=== PATIENT | female | born 1940 | race Caucasian/White ===

== ENCOUNTER → 2017-01-02 | Outpatient (CLI) | payer MEDICARE ==
--- NOTE | 2017-01-10 11:34 | P.ARTDOP ---
Arterial Doppler LOWER EXTREMITY ARTERIAL DOPPLER: DATE OF SERVICE: 01/02/2017 Reason for study: Bilateral claudication. Doppler waveforms: Multiphasic bilaterally throughout. Pulse volume recording: Normal configuration. Pressure gradients: None. Ankle-brachial indices: Greater than 1 bilaterally. Toe pressures: 108 on the right, 110 on the left Impression: Normal study.
== END | disposition home or self-care (01) ==
LOC: RADUSWWP 12:04
PROVIDERS: ATTEND Family Medicine
DX: M79.605 Pain in left leg (principal); M79.604 Pain in right leg
CPT/HCPCS: 93923

== ENCOUNTER → 2017-02-23 | Outpatient (CLI) | payer MEDICARE ==
--- NOTE | 2017-02-23 13:16 | XR ---
"EXAMINATION TYPE: XR lumbar spine 2 or 3V DATE OF EXAM: 02/23/2017 CLINICAL HISTORY: Pain after a fall TECHNIQUE: Frontal, and lateral images of the lumbar spine are obtained. COMPARISON: None FINDINGS: There are 5 lumbar type vertebral bodies identified. Compression deformity is seen of the L3 vertebral body with approximately one third vertebral height loss. Trabecular thickening and scler osis are seen of the superior endplate from the compression deformity. No evidence of retrolisthesis or retropulsion. Intervertebral disc space narrowing is seen at L5-S1. Facet arthropathy is also note d at L4-L5 and L5-S1. Extensive atheromatous changes are seen of the abdominal aorta and its branches. Overlying bowel gas is unremarkable. Catheter tubing overlies the right upper quadrant. IMPRESSION: 1. Compression deformity with height loss of approximately 33% of the L3 vertebral body without retro pulsion. Chronicity is unknown given the lack of comparison examinations. 2. Degenerative changes of the lower lumbar spine most exaggerated at L5-S1. A Red message has been communicated to Caterina Meyer via the [email or web address] | Critical Result sy stem on 02/23/2017 1:01 PM, Message ID [id number]."
== END | disposition home or self-care (01) ==
LOC: RADXRYALE 11:46
PROVIDERS: ATTEND Nurse Practitioner Family
DX: M47.817 Spondylosis without myelopathy or radiculopathy, lumbosacral region (principal); M43.8X6 Other specified deforming dorsopathies, lumbar region
CPT/HCPCS: 72100

== ENCOUNTER → 2017-03-29 | Outpatient (CLI) | payer MEDICARE ==
--- NOTE | 2017-03-29 15:49 | CT ---
EXAMINATION TYPE: CT lumbar spine wo con DATE OF EXAM: 03/29/2017 COMPARISON: Lumbar spine x-ray February 23, 2017. HISTORY: Lower back pain after fall injury. CT DLP: 446 mGycm Automated exposure control for dose reduction was used. FINDINGS: There are 5 lumbar-type vertebra redemonstrated. There is mild to moderate compression type fracture L3 level again seen. No suspicious linear lucency to suggest acute fracture is identified. Vertebral body heights otherwise are maintained. There is prominent spur from the anterior superior L3 endplate redemonstrated. There is moderate to severe disc space narrowing with mild spurring L5-S1 level. Sma ll posterior spur disc complex L2-L3 level is seen and L5-S1 level. Small posterior disc herniation L 4-L5 level as seen on sagittal images. Review of axial images at T12-L1 level shows mild facet degenerative changes bilaterally and mild bro ad disc bulge minimally effacing anterior thecal sac. Bilateral neural foramina are patent. Axial images at L1-L2 level show mild to moderate broad disc bulge mildly effacing anterior thecal sa c on axial image 19. There are mild facet degenerative changes bilaterally. There is mild bilateral a nterior inferior neural foraminal narrowing noted. Axial images at L2-L3 level show moderate to severe broad disc bulge effacing anterior thecal sac on axial image 29. There is mild facet degenerative changes bilaterally. There is mild to moderate bilat eral anterior inferior neural foraminal narrowing at this level identified. Axial images at L3-L4 level show moderate broad disc bulge effacing anterior thecal sac. There is mil d/moderate facet degenerative changes effacing posterior lateral thecal sac on axial image 39. There is moderate to severe bilateral neural foraminal narrowing at this level identified. Encroachment on both L3 nerves is difficult to exclude. Axial images at L4-L5 level show moderate broad-based posterior disc protrusion effacing anterior the dariel sac. There is moderate facet degenerative changes bilaterally. There is moderate bilateral neural foraminal narrowing at this level present. Axial images at L5-S1 level shows central spur disc complex but the spinal canal is well-preserved. T here is moderate facet arthropathy bilaterally. There is mild to moderate left greater than right aayush ral foraminal narrowing at this level identified. There is moderate to severe calcified plaque of the abdominal aorta extending into branch vessels. Th ere is partial visualization of shunt catheter in the right upper quadrant presumed GOOD HUMOR VENDOR shunt catheter . IMPRESSION: [id number] CHRONIC TYPE COMPRESSION FRACTURE L3 LEVEL REDEMONSTRATED. NO ACUTE FRACTURE OR DISL OCATION IS SEEN. MULTILEVEL DEGENERATIVE CHANGES THROUGHOUT THE LUMBAR SPINE ARE NOTED DETAILED AB OVE.
== END | disposition home or self-care (01) ==
LOC: RADCTMAIN 14:24
PROVIDERS: ATTEND Physical Medicine & Rehabilitation
DX: S32.039A Unspecified fracture of third lumbar vertebra, initial encounter for closed fracture (principal); M47.816 Spondylosis without myelopathy or radiculopathy, lumbar region; M16.0 Bilateral primary osteoarthritis of hip
CPT/HCPCS: 72131

== ENCOUNTER → 2020-11-15 | Outpatient (CLI) | payer MEDICARE ==
--- NOTE | 2020-11-15 09:42 | CT ---
EXAMINATION TYPE: CT brain wo con DATE OF EXAM: 11/15/2020 HISTORY: encounter for adjustment and management CSF drain dev CT DLP: 1017.9 mGycm. Automated Exposure Control for Dose Reduction was Utilized. TECHNIQUE: CT scan of the head is performed without contrast. COMPARISON: CT brain June 17, 2012. FINDINGS: Stable right frontal isa hole with EXPEDITER shunt catheter terminating in the right lateral deloris tricle near the midline, position unchanged. There is no acute intracranial hemorrhage or midline chloé ft identified. Persistent ventricular and sulcal prominence with ventricular size out of proportion t o degree of sulcal effacement. Ventricular size fairly stable from prior CT. Fourth ventricle is not dilated similar to prior. Low-attenuation in the periventricular white matter is redemonstrated. Calc ification of the distal vertebral and internal carotid arteries bilaterally is redemonstrated. Tiny e xophytic 4 mm skin lesion left zygoma level axial image 8 incidentally noted. Globes are intact and t he visualized sinuses are clear. IMPRESSION: No acute intracranial hemorrhage or midline shift. Moderate hydrocephalus despite EXPEDITER michelle nt catheter placement remains present. No significant change from 2012 CT.
== END | disposition home or self-care (01) ==
LOC: RADCTMAIN 09:01
PROVIDERS: ATTEND Family Medicine
DX: Z45.41 Encounter for adjustment and management of cerebrospinal fluid drainage device (principal); G91.9 Hydrocephalus, unspecified
CPT/HCPCS: 70450

== ENCOUNTER 2021-02-21 12:09 | Emergency (ER) | payer MEDICARE ==
[2021-02-21 12:48] VITALS: BP 141/58; RESP 16; TEMP 98.4
[2021-02-21 13:31] VITALS: PULSE 79
--- NOTE | 2021-02-21 13:51 | ED ---
General Adult HPI - General Chief complaint: Recheck/Abnormal Lab/Rx Stated complaint: shunt issue, from CT Time Seen by Provider: 02/21/21 13:20 Source: patient, family Mode of arrival: ambulatory Limitations: no limitations - History of Present Illness Initial comments: Patient presents to the emerge department after obtaining CT of the head. CT was read by radiology showing enlargement of the ventricles, concerning for shunt malfunction. Patient has had a little bit of worsening confusion recently but no fevers or chills and no headache, neck pain or neck stiffness. She has no chest pain or focal weakness. Nothing makes her symptoms better or worse. - Related Data Allergies Allergy/AdvReac Type Severity Reaction Status Date / Time No Known Allergies Allergy Verified 02/21/21 12:44 Review of Systems ROS Statement: Those systems with pertinent positive or pertinent negative responses have been documented in the HPI. ROS Other: All systems not noted in ROS Statement are negative. Past Medical History Past Medical History: Diabetes Mellitus, Hyperlipidemia, Hypertension History of Any Multi-Drug Resistant Organisms: None Reported Past Surgical History: Coronary Bypass/CABG Additional Past Surgical History / Comment(s): shunt Past Psychological History: No Psychological Hx Reported Smoking Status: Never smoker Past Alcohol Use History: None Reported Past Drug Use History: None Reported General Exam Limitations: no limitations General appearance: alert, in no apparent distress Head exam: Present: atraumatic, normocephalic, normal inspection Eye exam: Present: normal appearance, PERRL, EOMI. Absent: scleral icterus, conjunctival injection, periorbital swelling ENT exam: Present: normal exam, mucous membranes moist Neck exam: Present: normal inspection. Absent: tenderness, meningismus, lymphadenopathy Respiratory exam: Present: normal lung sounds bilaterally. Absent: respiratory distress, wheezes, rales, rhonchi, stridor Cardiovascular Exam: Present: regular rate, normal rhythm, normal heart sounds. Absent: systolic murmur, diastolic murmur, rubs, gallop, clicks GI/Abdominal exam: Present: soft, normal bowel sounds. Absent: distended, tenderness, guarding, rebound, rigid Extremities exam: Present: normal inspection, full ROM, normal capillary refill. Absent: tenderness, pedal edema, joint swelling, calf tenderness Back exam: Present: normal inspection Neurological exam: Present: alert, oriented X3, CN II-XII intact Psychiatric exam: Present: normal affect, normal mood Skin exam: Present: warm, dry, intact, normal color. Absent: rash Course Vital Signs 02/21/21 12:45 Temperature 98.4 F Pulse Rate 79 Respiratory 16 Rate Blood Pressure 141/58 O2 Sat by Pulse 98 Oximetry Medical Decision Making - Medical Decision Making I spoke with the patient's primary care physician, who is concern for shunt malfunction. I do not have neurosurgery this facility. I spoke with the han wilkinson at [facility], where her neurosurgeon operates out of. They have accepted the patient for transfer for further evaluation. Accepting physician is Dr. Krishnamurthy. Disposition Clinical Impression: Confusion Disposition: OTHER INSTITUTION NOT DEFINED Condition: Good Is patient prescribed a controlled substance at d/c from ED?: No When asked, does pt state using other controlled substances?: No If prescribed controlled substance>3 days was MAPS reviewed?: No If opioid is for acute pain is fill amount 7 days or less?: No If Rx opioid, was Start Talking consent form obtained?: No Referrals: Eliz Duffy DO [Primary Care Provider] - 1-2 days - Out of Hospital Transfer - Req. Specs Out of Hospital Transfer - Requested Specifics: Other Emergency Center
== END 2021-02-21 14:18 | disposition other institution (70) ==
LOC: EC 12:09
DX: R41.0 Disorientation, unspecified (principal); E11.9 Type 2 diabetes mellitus without complications; I10 Essential (primary) hypertension; Z95.1 Presence of aortocoronary bypass graft; Z20.822 Contact with and (suspected) exposure to COVID-19
CPT/HCPCS: 87635; 99285

== ENCOUNTER → 2021-02-21 | Outpatient (CLI) | payer MEDICARE ==
--- NOTE | 2021-02-21 11:48 | CT ---
EXAMINATION TYPE: CT brain wo con DATE OF EXAM: 02/21/2021 COMPARISON: 11/15/2020 INDICATION: Altered mental status. DLP: 1066.5 mGycm, Automated exposure control for dose reduction was used. CONTRAST: None CT of the brain is performed utilizing 3 mm thick sections through the posterior fossa and 3 mm thick sections through the remaining calvarium. Study is performed within 24 hours of arrival to the hosp ital. No abnormal hyperdensity is present to suggest an acute intracranial hemorrhage. No mass lesion is evident. No acute infarcts are evident. White matter hypodensity, likely on the basis change. There is a shunt catheter present on the right. Right lateral ventricle. There is prominence of the l ateral ventricles with rounding of the temporal horns. This has increased from the comparison study. Correlate for malfunction. Third ventricle is prominent increase from comparison with the midline and increased comparison. Sulci are appropriate for patient age. Paranasal sinuses and mastoid air cells within the [id number] are clear. IMPRESSIONS: 1. There is prominence of the lateral ventricles with rounding of the temporal horns. Third ventric le and fourth ventricle are prominent. These increased from the comparison of 11/15/2020. Correlate fo r shunt malfunction.
== END | disposition home or self-care (01) ==
LOC: RADCTMAIN 11:14
PROVIDERS: ATTEND Nurse Practitioner
DX: G91.1 Obstructive hydrocephalus (principal); R41.82 Altered mental status, unspecified
CPT/HCPCS: 70450

== ENCOUNTER 2021-02-26 13:37 | Emergency (ER) | payer MEDICARE ==
[2021-02-26 13:41] VITALS: RESP 18; TEMP 98.6
[2021-02-26] MEDS ORDERED: MORPHINE SULFATE 2 MG/ML SYRINGE IM ONE (14:13)
--- NOTE | 2021-02-26 14:26 | ED ---
Upper Extremity HPI - General Chief Complaint: Extremity Injury, Upper Stated Complaint: fall, L arm pain Source: patient, family, Caregiver Mode of arrival: wheelchair Limitations: no limitations - History of Present Illness Initial Comments: 81-year-old white female, alert to person only, presents to the emergency room with her family with complaints of falling out of bed last night onto her left arm. This was an unwitnessed fall however they state that the patient has been grimacing in pain with movement of the left arm. They did wrap her wrist with an Hayden wrap however when then try to help move her she grimaces in pain. Patient is due for AVIONICS INTEGRATION ENGINEER shunt revision on Sunday at [facility] in [place] with Dr Héctor Castorena. Family is not sure if she hit her head, states she has been off of her blood thinners in preparation for the surgery. Complaint: Injury to:: left -: hour(s) Place: home - Related Data Allergies Allergy/AdvReac Type Severity Reaction Status Date / Time bacitracin Allergy Unknown Verified 02/26/21 13:41 [From Neosporin ([id number])] neomycin Allergy Unknown Verified 02/26/21 13:41 [From Neosporin ([id number])] polymyxin B Allergy Unknown Verified 02/26/21 13:41 [From Neosporin ([id number])] Review of Systems ROS Statement: Those systems with pertinent positive or pertinent negative responses have been documented in the HPI. ROS Other: All systems not noted in ROS Statement are negative. Past Medical History Past Medical History: Diabetes Mellitus, Hyperlipidemia, Hypertension History of Any Multi-Drug Resistant Organisms: None Reported Past Surgical History: Coronary Bypass/CABG Additional Past Surgical History / Comment(s): shunt Past Psychological History: No Psychological Hx Reported Smoking Status: Never smoker Past Alcohol Use History: None Reported Past Drug Use History: None Reported General Exam Limitations: no limitations General appearance: alert, in no apparent distress Head exam: Present: atraumatic, normocephalic, normal inspection, other (AVIONICS INTEGRATION ENGINEER shunt and right side) Eye exam: Present: normal appearance, PERRL. Absent: scleral icterus, conjunctival injection, periorbital swelling Pupils: Present: normal accommodation ENT exam: Present: normal exam, normal oropharynx, mucous membranes moist Neck exam: Present: normal inspection, full ROM. Absent: tenderness, meningismus, lymphadenopathy, thyromegaly Respiratory exam: Present: normal lung sounds bilaterally. Absent: respiratory distress, wheezes, rales, rhonchi, stridor Cardiovascular Exam: Present: bradycardia GI/Abdominal exam: Present: soft, normal bowel sounds. Absent: distended, tenderness, guarding, rebound, rigid Left Shoulder Exam: Present: tenderness, tenderness over AC joint. Absent: full ROM Upper Arm exam: Present: tenderness. Absent: full ROM Elbow exam: Present: full ROM. Absent: tenderness Forearm Wrist exam: Present: full ROM. Absent: tenderness, swelling Hand Wrist exam: Present: full ROM. Absent: tenderness, swelling Vascular: Present: normal capillary refill, radial pulse Neurological exam: Present: alert (Person only) Psychiatric exam: Present: normal affect, normal mood Skin exam: Present: warm, dry, intact, normal color. Absent: rash, cyanosis, diaphoretic, erythema, petechiae, pallor, mottled Course Vital Signs 02/26/21 13:38 Temperature 98.6 F Pulse Rate 56 L Respiratory 18 Rate Blood Pressure 112/64 O2 Sat by Pulse 98 Oximetry Medical Decision Making - Medical Decision Making X-ray of the left humerus is negative for fracture. X-ray of the left shoulder shows an impacted humeral neck fracture with approximately 1.5 cm impaction. The scapula appears intact and there is no dislocation. Spoke with Leonor from orthopedics who states plan of care would be to put patient in a sling and have her follow-up in the office next week. CT of the brain and C-spine shows hydrocephalus and cerebral atrophy without change compared to old exam 0 02/21/2021. There is no mass or midline shift, no sign of intracranial hemorrhage. The shunt catheter is within the tip of the right frontal horn right lateral ventricle. Case discussed with Dr. Lemos. Family advised of plan of care and given orthopedic referral. Directed to wear the sling, have patient follow up with orthopedics this week. Keep her appointment on Sunday for her shunt revision. Disposition Clinical Impression: Fracture of humerus Disposition: HOME SELF-CARE Condition: Fair Instructions (If sedation given, give patient instructions): Arm Fracture in Adults (ED) Additional Instructions: Wear sling and follow-up with orthopedics in 1 week. Tylenol for pain. Return if any worsening symptoms including pain or numbness. Is patient prescribed a controlled substance at d/c from ED?: No Referrals: Eliz Duffy DO [Primary Care Provider] - 1-2 days Donaldo Sinha DO [Doctor of Osteopathic Medicine] - 1-2 days Time of Disposition: 16:12
--- NOTE | 2021-02-26 15:07 | XR ---
EXAMINATION TYPE: XR humerus LT DATE OF EXAM: 02/26/2021 COMPARISON: NONE HISTORY: Fall. Pain. TECHNIQUE: 2 views FINDINGS: Exam is very limited. I see no obvious fracture. IMPRESSION: Limited exam shows no evidence of a humerus fracture.
--- NOTE | 2021-02-26 15:09 | XR ---
EXAMINATION TYPE: XR shoulder complete LT DATE OF EXAM: 02/26/2021 COMPARISON: NONE HISTORY: Fall. Pain. TECHNIQUE: 3 views FINDINGS: There is transverse acute fracture through the humeral neck with impaction. There is approx imate 1.5 cm impaction. There is no dislocation. The scapula appears intact. IMPRESSION: Impacted humeral neck fracture.
--- NOTE | 2021-02-26 15:26 | CT ---
EXAMINATION TYPE: CT brain cspine wo con DATE OF EXAM: 02/26/2021 COMPARISON: CT brain February 21, 2021 HISTORY: Fall. CT DLP: 1332.7 mGycm Automated exposure control for dose reduction was used. There is enlargement of the ventricles. There is right side ventricular peritoneal shunt catheter wit h tip in the frontal horn right lateral ventricle. There is no mass effect nor midline shift. There i s no sign of intracranial hemorrhage. There is some cerebral cortical atrophy. Cervical vertebra have normal alignment. There is no compression fracture. Posterior elements are int act. There is mild hypertrophic facet arthropathy. There is mild disc space narrowing at C5-6 with mi nimal spurring of the endplates. There is no evidence of focal bone destruction. IMPRESSION: Hydrocephalus and cerebral atrophy without change compared to old exam. Minor degenerative changes at C5-6. No evidence of cervical spine fracture.
[2021-02-26] MEDS ORDERED: ACET/COD 300 MG/30 MG STARTER PACK 6 TAB BTL PO STA (16:14)
[2021-02-26 17:15] VITALS: BP 146/63; PULSE 61
== END 2021-02-26 17:15 | disposition home or self-care (01) ==
LOC: EC 13:37
DX: S42.292A Other displaced fracture of upper end of left humerus, initial encounter for closed fracture (principal); G91.9 Hydrocephalus, unspecified; G31.9 Degenerative disease of nervous system, unspecified; I10 Essential (primary) hypertension; E11.9 Type 2 diabetes mellitus without complications; Z88.1 Allergy status to other antibiotic agents; W06.XXXA Fall from bed, initial encounter; Y92.009 Unspecified place in unspecified non-institutional (private) residence as the place of occurrence of the external cause
CPT/HCPCS: 73030; 73060; 72125; 70450; 99284; 96372; J2270

== ENCOUNTER → 2021-05-24 | Outpatient (CLI) | payer MEDICARE ==
--- NOTE | 2021-05-24 14:05 | CT ---
EXAMINATION TYPE: CT brain wo con DATE OF EXAM: 05/24/2021 HISTORY: communicating hydrocephalus CT DLP: 981.7 mGycm. Automated Exposure Control for Dose Reduction was Utilized. TECHNIQUE: CT scan of the head is performed without contrast. COMPARISON: CT brain February 26, 2021 and older studies. FINDINGS: Stable right frontal isa hole with LEATHER PRODUCTION MACHINE OPERATOR shunt catheter terminating in the right lateral deloris tricle near the midline, position unchanged. There is no acute intracranial hemorrhage or midline chloé ft identified. Persistent ventricular and sulcal prominence with ventricular size out of proportion t o degree of sulcal effacement. Prominent third ventricle. Ventricular size fairly stable from prior C Ts. Fourth ventricle is not dilated similar to prior. Low-attenuation in the periventricular white ma tter is redemonstrated. Calcification of the distal vertebral and internal carotid arteries bilateral ly is redemonstrated. Scleral calcification left globe redemonstrated. Paranasal sinuses remain clear . IMPRESSION: No acute intracranial hemorrhage or midline shift. Moderate hydrocephalus despite LEATHER PRODUCTION MACHINE OPERATOR michelle nt catheter placement remains present. No significant change from prior studies
== END | disposition home or self-care (01) ==
LOC: RADCTMAIN 13:20
PROVIDERS: ATTEND Neurological Surgery
DX: G91.0 Communicating hydrocephalus (principal)
CPT/HCPCS: 70450

== ENCOUNTER 2021-12-02 05:48 | Emergency (ER) | payer MEDICARE ==
--- NOTE | 2021-12-02 06:32 | ED ---
Fall HPI - General Chief Complaint: Fall Stated Complaint: Fall Time Seen by Provider: 12/02/21 05:59 Source: EMS, RN notes reviewed Mode of arrival: EMS Limitations: altered mental status (secondary to dementia) - History of Present Illness Initial Comments: This is a 81-year-old female who presents to the emergency department from [facility] for a possible fall. Patient has dementia at baseline and is alert to herself. At around 1:30 AM, she was found sitting up on the floor next to her bed. She was alert to herself at that time. She has not been complaining of any pain or otherwise acting differently. Her physician at [facility] advised she come to the emergency department for evaluation. Patient is not complaining of any pain upon initial evaluation. Difficult to obtain reliable responses from her given her dementia and baseline confusion. Patient is also not sure if she actually fell or not. MD Complaint: fall When Fall Occurred: unsure Place Fall Occurred: [facility] - Related Data Home Medications Medication Instructions Recorded Confirmed ALPRAZolam [Xanax] 0.25 mg PO HS 12/02/21 12/02/21 Acetaminophen Tab [Tylenol] 650 mg PO Q6H PRN 12/02/21 12/02/21 Aspirin 81 mg PO DAILY 12/02/21 12/02/21 Atorvastatin Calcium [Lipitor] 20 mg PO DAILY 12/02/21 12/02/21 Clopidogrel Bisulfate [Plavix] 75 mg PO HS 12/02/21 12/02/21 Docusate [Colace] 100 mg PO 12/02/21 12/02/21 Escitalopram [Lexapro] 10 mg PO DAILY@0700 12/02/21 12/02/21 Insulin Glargine,Hum.rec.anlog 18 unit SQ HS 12/02/21 12/02/21 [Lantus Solostar Pen] Insulin Glargine,Hum.rec.anlog 32 unit SQ DAILY 12/02/21 12/02/21 [Lantus Solostar Pen] Insulin Regular [HumuLIN R] See Protocol SQ AC-TID 12/02/21 12/02/21 Isosorbide Mononitrate ER [Imdur] 60 mg PO DAILY 12/02/21 12/02/21 Loperamide HCl [Imodium A-D] 2 - 4 mg PO QID PRN MDD 4 doses 12/02/21 12/02/21 Losartan Potassium [Cozaar] 25 mg PO DAILY 12/02/21 12/02/21 Magnesium Hydroxide [Milk of 2,400 mg PO DAILY PRN 12/02/21 12/02/21 Magnesia] Melatonin 6 mg PO HS 12/02/21 12/02/21 Metoprolol Succinate [Toprol XL] 25 mg PO BID@0700,1900 12/02/21 12/02/21 amLODIPine [Norvasc] 5 mg PO DAILY@199912/02/21 12/02/21 Previous Rx's Medication Instructions Recorded Cephalexin [Keflex] 500 mg PO Q12HR 7 Days #14 cap 12/02/21 Allergies Allergy/AdvReac Type Severity Reaction Status Date / Time bacitracin Allergy Unknown Verified 02/26/21 13:41 [From Neosporin ([id number])] neomycin Allergy Unknown Verified 02/26/21 13:41 [From Neosporin ([id number])] polymyxin B Allergy Unknown Verified 02/26/21 13:41 [From Neosporin ([id number])] Review of Systems ROS Statement: Those systems with pertinent positive or pertinent negative responses have been documented in the HPI. ROS Other: All systems not noted in ROS Statement are negative. Limitations: ROS unobtainable due to patients medical condition Past Medical History Past Medical History: Diabetes Mellitus, Hyperlipidemia, Hypertension History of Any Multi-Drug Resistant Organisms: None Reported Past Surgical History: Coronary Bypass/CABG Additional Past Surgical History / Comment(s): shunt Past Psychological History: No Psychological Hx Reported Smoking Status: Never smoker Past Alcohol Use History: None Reported Past Drug Use History: None Reported General Exam Limitations: altered mental status (secondary to dementia) General appearance: alert Head exam: Present: atraumatic, normocephalic Respiratory exam: Present: normal lung sounds bilaterally. Absent: respiratory distress, wheezes, rales, rhonchi, stridor Cardiovascular Exam: Present: regular rate, normal rhythm, normal heart sounds. Absent: systolic murmur, diastolic murmur, rubs, gallop, clicks GI/Abdominal exam: Present: soft, normal bowel sounds. Absent: distended, tenderness, guarding, rebound, rigid Neurological exam: Present: alert Skin exam: Present: warm, dry, intact, normal color. Absent: rash Course Vital Signs 12/02/21 12/02/21 12/02/21 05:52 07:35 11:42 Temperature 97.7 F 97.5 F L Pulse Rate 60 66 75 Respiratory 18 16 18 Rate Blood Pressure 157/65 154/58 138/50 O2 Sat by Pulse 97 98 95 Oximetry Medical Decision Making - Medical Decision Making This is a 81-year-old female who presents to the emergency department for a possible fall. Given that the situation is unclear and the patient cannot provide any information, will obtain a baseline workup including lab work and CT of the head and neck and x-ray of the chest and pelvis. CT scan and X-rays revealed no acute abnormalities. Lab work was unremarkable. Urinalysis consistent with a urinary tract infection. Patient given prescription for 7 day course of Keflex. She'll be discharged back to [facility]. Return precautions reviewed in depth, the patient is instructed to return to the emergency department with any new, worsening, or concerning symptoms. Patient verbalized understanding. This case was discussed in detail with the attending ED physician. Presentation, findings, and treatment plan discussed in detail as well. - Lab Data Result diagrams: 12/02/21 10:08 12/02/21 10:08 Lab Results 12/02/21 12/02/21 12/02/21 Range/Units 10:08 10:08 10:08 WBC 4.7 (3.8-10.6) k/uL RBC 4.45 (3.80-5.40) m/uL Hgb 12.2 (11.4-16.0) gm/dL Hct 38.7 (34.0-46.0) % MCV 86.8 (80.0-100.0) fL MCH 27.5 (25.0-35.0) pg MCHC 31.7 (31.0-37.0) g/dL RDW 13.5 (11.5-15.5) % Plt Count 274 (150-450) k/uL MPV 8.6 Neutrophils % 53 % Lymphocytes % 30 % Monocytes % 7 % Eosinophils % 5 % Basophils % 1 % Neutrophils # 2.5 (1.3-7.7) k/uL Lymphocytes # 1.4 (1.0-4.8) k/uL Monocytes # 0.4 (0-1.0) k/uL Eosinophils # 0.2 (0-0.7) k/uL Basophils # 0.1 (0-0.2) k/uL Sodium 138 (137-145) mmol/L Potassium 4.1 (3.5-5.1) mmol/L Chloride 102 (98-107) mmol/L Carbon Dioxide 30 (22-30) mmol/L Anion Gap 6 mmol/L BUN 22 H (7-17) mg/dL Creatinine 0.90 (0.52-1.04) mg/dL Est GFR (CKD-EPI)AfAm 71 (>60 ml/min/1.73 sqM) Est GFR (CKD-EPI)NonAf 61 (>60 ml/min/1.73 sqM) Glucose 74 (74-99) mg/dL Calcium 9.1 (8.4-10.2) mg/dL Total Bilirubin 0.5 (0.2-1.3) mg/dL AST 27 (14-36) U/L ALT 31 (4-34) U/L Alkaline Phosphatase 99 (38-126) U/L Troponin I <0.012 (0.000-0.034) ng/mL Total Protein 6.9 (6.3-8.2) g/dL Albumin 4.0 (3.5-5.0) g/dL Urine Color Urine Appearance (Clear) Urine pH (5.0-8.0) Ur Specific [place] (1.001-1.035) Urine Protein (Negative) Urine Glucose (UA) (Negative) Urine Ketones (Negative) Urine Blood (Negative) Urine Nitrite (Negative) Urine Bilirubin (Negative) Urine Urobilinogen (<2.0) mg/dL Ur Leukocyte Esterase (Negative) Urine RBC (0-5) /hpf Urine WBC (0-5) /hpf Urine WBC Clumps (None) /hpf Ur Squamous Epith Cells (0-4) /hpf Urine Bacteria (None) /hpf Urine Mucus (None) /hpf 12/02/21 Range/Units 10:34 WBC (3.8-10.6) k/uL RBC (3.80-5.40) m/uL Hgb (11.4-16.0) gm/dL Hct (34.0-46.0) % MCV (80.0-100.0) fL MCH (25.0-35.0) pg MCHC (31.0-37.0) g/dL RDW (11.5-15.5) % Plt Count (150-450) k/uL MPV Neutrophils % % Lymphocytes % % Monocytes % % Eosinophils % % Basophils % % Neutrophils # (1.3-7.7) k/uL Lymphocytes # (1.0-4.8) k/uL Monocytes # (0-1.0) k/uL Eosinophils # (0-0.7) k/uL Basophils # (0-0.2) k/uL Sodium (137-145) mmol/L Potassium (3.5-5.1) mmol/L Chloride (98-107) mmol/L Carbon Dioxide (22-30) mmol/L Anion Gap mmol/L BUN (7-17) mg/dL Creatinine (0.52-1.04) mg/dL Est GFR (CKD-EPI)AfAm (>60 ml/min/1.73 sqM) Est GFR (CKD-EPI)NonAf (>60 ml/min/1.73 sqM) Glucose (74-99) mg/dL Calcium (8.4-10.2) mg/dL Total Bilirubin (0.2-1.3) mg/dL AST (14-36) U/L ALT (4-34) U/L Alkaline Phosphatase (38-126) U/L Troponin I (0.000-0.034) ng/mL Total Protein (6.3-8.2) g/dL Albumin (3.5-5.0) g/dL Urine Color Light Yellow Urine Appearance Cloudy H (Clear) Urine pH 6.5 (5.0-8.0) Ur Specific [place] 1.010 (1.001-1.035) Urine Protein Negative (Negative) Urine Glucose (UA) Negative (Negative) Urine Ketones Negative (Negative) Urine Blood Negative (Negative) Urine Nitrite Positive H (Negative) Urine Bilirubin Negative (Negative) Urine Urobilinogen <2.0 (<2.0) mg/dL Ur Leukocyte Esterase Large H (Negative) Urine RBC 1 (0-5) /hpf Urine WBC 69 H (0-5) /hpf Urine WBC Clumps Few H (None) /hpf Ur Squamous Epith Cells <1 (0-4) /hpf Urine Bacteria Moderate H (None) /hpf Urine Mucus Rare H (None) /hpf - EKG Data EKG Comments: Sinus rhythm with occasional supraventricular premature complexes. Left axis deviation. Ventricular rate 61 bpm, IA interval 186 ms, QRS duration 109 ms, QTC 458 ms. - Radiology Data Radiology results: report reviewed, image reviewed Disposition Clinical Impression: Fall, Urinary tract infection Disposition: HOME SELF-CARE Instructions (If sedation given, give patient instructions): Urinary Tract Infection in Women (ED), Fall Prevention for Older Adults (ED) Additional Instructions: Return to the emergency department with any new, worsening, or concerning symptoms. Take the Keflex as prescribed for 7 days. Follow up with your primary care provider in 1-2 days. Prescriptions: Cephalexin [Keflex] 500 mg PO Q12HR 7 Days #14 cap Is patient prescribed a controlled substance at d/c from ED?: No Referrals: Nonstaff,Physician [Primary Care Provider] - 1-2 days
--- NOTE | 2021-12-02 07:27 | CT ---
EXAM: CT Head Without Intravenous Contrast CLINICAL HISTORY: ITS.REASON CT Reason: Possible fall in patient with dementia TECHNIQUE: Axial computed tomography images of the head/brain without intravenous contrast. CTDI is 13.8 mGy and DLP is 981.5 mGy-cm. This CT exam was performed using one or more of the following dose reduction techniques: automated exposure control, adjustment of the mA and/or kV according to patient size, and/or use of iterative reconstruction technique. COMPARISON: No relevant prior studies available. FINDINGS: Brain: Encephalomalacia involving the right frontal lobe, unchanged in distribution from prior study. No hemorrhage. No significant white matter disease. No edema. Ventricles: Right transfrontal approach ventriculoperitoneal shunt in place. No ventriculomegaly. Bones/joints: Unremarkable. No acute fracture. Soft tissues: Unremarkable. Sinuses: Unremarkable as visualized. No acute sinusitis. Mastoid air cells: Unremarkable as visualized. No mastoid effusion. IMPRESSION: No acute intracranial process. EXAM: CT Cervical Spine Without Intravenous Contrast CLINICAL HISTORY: ITS.REASON CT Reason: Possible fall in patient with dementia TECHNIQUE: Axial computed tomography images of the cervical spine without intravenous contrast. CTDI is 13.8 mGy and DLP is 438.2 mGy-cm. This CT exam was performed using one or more of the following dose reduction techniques: automated exposure control, adjustment of the mA and/or kV according to patient size, and/or use of iterative reconstruction technique. COMPARISON: No relevant prior studies available. FINDINGS: Vertebrae: Unremarkable. No acute fracture. Chronic superior endplate deformities at C7-T2. Discs/spinal canal/neural foramina: No acute findings. No spinal canal stenosis. Mild degenerative disc disease at C5-6. Soft tissues: Unremarkable. IMPRESSION: No acute fractures or spondylolisthesis of the cervical spine.
--- NOTE | 2021-12-02 08:01 | XR ---
EXAM: XR Chest, 1 View CLINICAL HISTORY: ITS.REASON XR Reason: Possible fall in patient with dementia TECHNIQUE: Frontal view of the chest. COMPARISON: No relevant prior studies available. FINDINGS: Lungs: Unremarkable. No consolidation. Pleural space: Unremarkable. No pneumothorax. Heart: Median sternotomy wires in place. No cardiomegaly. Mediastinum: Unremarkable. Partially visualized right sided ventriculoperitoneal shunt catheter overlying the right lateral chest wall. Bones/joints: Unremarkable. IMPRESSION: No acute pulmonary process.
--- NOTE | 2021-12-02 08:03 | XR ---
EXAM: XR Pelvis, 1 or 2 Views CLINICAL HISTORY: ITS.REASON XR Reason: Possible fall in patient with dementia TECHNIQUE: Frontal view of the pelvis. COMPARISON: No relevant prior studies available. FINDINGS: Bones/joints: Unremarkable. No acute fracture. No dislocation. Soft tissues: Phleboliths in the pelvis. Extensive vascular calcifications. IMPRESSION: Normal pelvis x-ray.
[2021-12-02 10:22] LABS: Basophils # (A) 0.1 k/uL (0-0.2); Basophils % (A) 1 %; Eosinophils # (A) 0.2 k/uL (0-0.7); Eosinophils % (A) 5 %; HCT 38.7 % (34.0-46.0); HGB 12.2 gm/dL (11.4-16.0); Lymphocytes # (A) 1.4 k/uL (1.0-4.8); Lymphocytes % (A) 30 %; MCH 27.5 pg (25.0-35.0); MCHC 31.7 g/dL (31.0-37.0); MCV 86.8 fL (80.0-100.0); Mean Platelet Volume 8.6; Monocytes # (A) 0.4 k/uL (0-1.0); Monocytes % (A) 7 %; Neutrophils # (A) 2.5 k/uL (1.3-7.7); Neutrophils % (A) 53 %; Platelet Count 274 k/uL (150-450); RBC 4.45 m/uL (3.80-5.40); RDW 13.5 % (11.5-15.5); WBC 4.7 k/uL (3.8-10.6)
[2021-12-02 10:31] LABS: Calcium 9.1 mg/dL (8.4-10.2); Potassium 4.1 mmol/L (3.5-5.1); Total Bilirubin 0.5 mg/dL (0.2-1.3); Total Protein 6.9 g/dL (6.3-8.2)
[2021-12-02 10:52] LABS: Appearance,Urine Cloudy (Clear); Bacteria,Urine Moderate /hpf; Bilirubin,Urine Negative (Negative); Blood,Urine Negative (Negative); Color,Urine Light Yellow; Glucose,Urine (UA) Negative (Negative); Ketones,Urine Negative (Negative); Leukocyte Esterase,Urine Large (Negative); Mucus,Urine Rare /hpf; Nitrite,Urine Positive (Negative); PH, Urine 6.5 (5.0-8.0); Protein,Urine Negative (Negative); RBC,Urine 1 /hpf (0-5); Squamous Epithelial Cell,Urine <1 /hpf (0-4); Urobilinogen,Urine <2.0 mg/dL (<2.0); WBC,Urine 69 /hpf (0-5)
[2021-12-02 11:44] VITALS: BP 138/50; PULSE 75; RESP 18; TEMP 97.5
== END 2021-12-02 12:46 | disposition home or self-care (01) ==
LOC: EC 05:48
DX: N39.0 Urinary tract infection, site not specified (principal); Z88.1 Allergy status to other antibiotic agents; E11.9 Type 2 diabetes mellitus without complications; I10 Essential (primary) hypertension
CPT/HCPCS: 36415; 70450; 71045; 72125; 72170; 80053; 81001; 84484; 85025; 87077; 87086; 87186; 93005